=== PATIENT | female | born 1985 | race Caucasian/White ===

== ENCOUNTER 2017-12-25 11:36 | Emergency (ER) | payer MEDICAID ==
[~2017-12-25] VITALS: Ht 152.4 cm; Wt 64.0 kg
[2017-12-25 18:34] LABS: CLARITY URINE CLEAR (CLEAR); COLOR URINE YELLOW (YELLOW); KETONES URINE 1+ (NEGATIVE); LEUKOCYTE ESTERASE URINE NEGATIVE (NEGATIVE); NITRITE URINE NEGATIVE (NEGATIVE); OCCULT BLOOD URINE TRACE (NEGATIVE); PROTEIN URINE NEGATIVE (NEGATIVE); SPECIFIC GRAVITY URINE 1.024 (1.005-1.030); UROBILINOGEN URINE 0.2 E.U./dL (0.2-1.0)
[2017-12-25] MEDS ORDERED: HYDROCORTISONE 1% CREAM 30GM TOP ONE (19:15)
[2017-12-25] MEDS ORDERED: KETOROLAC 60MG/2ML VIAL IM ONE (19:15)
[2017-12-25 23:27] VITALS: BP 102/65
== END 2017-12-25 23:30 | disposition home or self-care (01) ==
LOC: ER 11:36
DX: M54.5 Low back pain (principal); R31.9 Hematuria, unspecified
CPT/HCPCS: 76770; 81003; 81025; 96372; 99285; J1885

== ENCOUNTER 2018-02-07 10:48 | Emergency (ER) | payer MEDICAID ==
[2018-02-07 12:11] LABS: BASOPHILS % 0.6 % (0.0-2.0); EOSINOPHILS % 1.1 % (0.0-5.0); HEMATOCRIT. 38.3 % (36.0-48.0); HEMOGLOBIN. 13.2 g/dL (12.0-16.0); LYMPHOCYTES % 18.3 % (20.0-50.0); MEAN CORPUSCULAR HEMOGLOBIN 29.6 pg (28.0-32.0); MEAN PLATELET VOLUME 7.4 fl (7.4-10.4); MONOCYTES % 4.1 % (2.0-8.0); NEUTROPHILS % 75.9 % (40.0-76.0); PLATELET 278 x1000/uL (130-400); RED BLOOD CELL COUNT 4.45 mill/uL (4.2-5.4); RED CELL DISTRIBUTION WIDTH 13.5 % (11.6-14.6)
[2018-02-07 12:18] LABS: CHLORIDE 106 mEq/L (98-107)
[2018-02-07 12:19] LABS: PROTHROMBIN TIME 10.7 sec (9.4-11.6)
[2018-02-07 12:46] LABS: HCG SCREEN NEGATIVE
[2018-02-07] MEDS ORDERED: IOHEXOL-300 100 ML BOTTLE ONE (15:25)
[2018-02-07 15:57] LABS: CLARITY URINE CLEAR (CLEAR); COLOR URINE YELLOW (YELLOW); KETONES URINE NEGATIVE (NEGATIVE); LEUKOCYTE ESTERASE URINE NEGATIVE (NEGATIVE); NITRITE URINE NEGATIVE (NEGATIVE); OCCULT BLOOD URINE 1+ (NEGATIVE); PROTEIN URINE NEGATIVE (NEGATIVE); SPECIFIC GRAVITY URINE 1.022 (1.005-1.030)
[2018-02-07] MEDS ORDERED: KETOROLAC 30MG/ML VIAL IV ONE (16:15)
[2018-02-07 17:00] VITALS: BP 126/78
== END 2018-02-07 17:00 | disposition home or self-care (01) ==
LOC: ER 11:25
DX: R10.2 Pelvic and perineal pain (principal); R00.1 Bradycardia, unspecified
CPT/HCPCS: 36415; 71045; 74177; 80053; 81003; 83690; 84703; 85025; 85610; 93005; 96374; 99285; J1885; Q9967; Z7610

== ENCOUNTER 2018-03-20 11:38 | Emergency (ER) | payer MEDICAID ==
[~2018-03-20] VITALS: Ht 165.1 cm; Wt 61.0 kg
[2018-03-20] MEDS ORDERED: ONDANSETRON 4MG ODT PO ONE (14:15)
[2018-03-20] MEDS ORDERED: IBUPROFEN 600MG TABLET PO ONE (14:15)
[2018-03-20 14:58] LABS: CLARITY URINE CLEAR (CLEAR); COLOR URINE YELLOW (YELLOW); KETONES URINE 1+ (NEGATIVE); LEUKOCYTE ESTERASE URINE NEGATIVE (NEGATIVE); NITRITE URINE NEGATIVE (NEGATIVE); OCCULT BLOOD URINE 1+ (NEGATIVE); PROTEIN URINE NEGATIVE (NEGATIVE); SPECIFIC GRAVITY URINE 1.023 (1.005-1.030); UROBILINOGEN URINE 0.2 E.U./dL (0.2-1.0)
[2018-03-20] MEDS ORDERED: KETOROLAC 60MG/2ML VIAL IM ONE (16:00)
[2018-03-20 17:49] VITALS: BP 126/81
== END 2018-03-20 17:53 | disposition home or self-care (01) ==
LOC: ER 11:38
DX: R10.33 Periumbilical pain (principal); R51 Headache; R42 Dizziness and giddiness
CPT/HCPCS: 74018; 81003; 96372; 99285; J1885; Q0162